=== PATIENT | female | born 1965 | race Two or more races ===

== ENCOUNTER 2022-07-29 12:49 | Emergency (ER) | payer OTHER ==
[~2022-07-29] VITALS: Ht 157.5 cm; Wt 68.0 kg
[~2022-07-29 12:49] MED LIST: IMODIUM A-D2 MG PO; OSEL75CA PO; PEPCID40 MG PO; ZOFRAN4 MG PO
== END 2022-07-29 17:47 | disposition home or self-care (01) ==
LOC: ER 12:49
DX: J06.9 Acute upper respiratory infection, unspecified (principal); Z20.822 Contact with and (suspected) exposure to COVID-19